=== PATIENT | female | born 1945 | race Caucasian/White ===

== ENCOUNTER → 2018-01-25 | Outpatient (CLI) | payer MEDICARE ==
--- NOTE | 2018-01-25 14:54 | CT ---
EXAM DESCRIPTION: Abdoment/Pelvis w/o Contrast CLINICAL HISTORY: 72 years Female, LEFT ADRENAL MASS E27.9 COMPARISON: CT lumbar spine dated May 20, 2009. TECHNIQUE: Contiguous 3 mm axial images were obtained from above the diaphragm to below the proximal femoral level with the use of oral only, no intravenous contrast given. Sagittal and coronal reconstructions were reviewed. FINDINGS: The visualized lower thorax appears grossly unremarkable with no pleural or pericardial effusion. Limited evaluation of solid abdominal organs due to lack of intravenous contrast. The liver appears grossly unremarkable with no intrahepatic ductal dilatation. The gallbladder, spleen pancreas and right adrenal gland appears grossly unremarkable. A 1.7 cm left adrenal nodule is noted measuring 10 HU in density which appears stable since prior exam dated May 20, 2009 most likely represents an adenoma. Both kidneys appear symmetric in size with no evidence of nephrolithiasis, hydronephrosis, hydroureter are perinephric stranding. A 4.4 x 4.3 cm soft tissue density mass is noted in the left retroperitoneum along the posterior aspect of left kidney, closely abutting the left kidney This was also noted on prior study, CT lumbar spine dated May 2009 with no significant interval increase in size. These most likely represents a lobulated renal cyst. The distal esophagus appears grossly unremarkable. The stomach is collapsed limiting detail evaluation. The small and large bowel loops appear grossly unremarkable with no abnormal dilatation or wall thickening. No free intraperitoneal air or fluid. No enlarged abdominal or retroperitoneal lymphadenopathy. Moderate atherosclerotic calcifications of the abdominal aorta are noted without any aneurysmal dilatation. The urinary bladder is well-distended and appears grossly unremarkable. The uterus is surgically absent. The ovaries are not well-visualized. No free fluid in the pelvis. Review of the bone windows demonstrate severe dextroscoliosis of the lower lumbar spine. Multilevel degenerative changes of the lumbar spine noted with the bilateral transpedicular screws at the L5-S1 level. No acute osseous abnormality identified. IMPRESSION: 1. No acute intra-abdominal process. 2. 1.7 cm left adrenal nodule which appears stable since May 2009 most likely represents an adenoma. 3. 4.4 x 4.2 cm soft tissue density mass in the left retroperitoneal closely abutting the left kidney likely represents a lobulated renal cyst with no significant interval increase in size since May 20, 2009. 4. Severe degenerative changes of the lumbar spine with bilateral intact transpedicular screws at L5-S1 level. This exam was performed according to our departmental dose-optimization program, which includes automated exposure control, adjustment of the mA and/or kV according to patient size and/or use of iterative reconstruction technique. Electronically signed by: Tyrone Carlos MD 01/25/2018 2:53 PM [facility]
== END ==
LOC: CT 11:00
PROVIDERS: ATTEND General Practice
DX: E27.9 Disorder of adrenal gland, unspecified (principal); M47.896 Other spondylosis, lumbar region